=== PATIENT | male | born 1985 | race Caucasian/White ===

== ENCOUNTER → 2017-04-24 | Outpatient (CLI) | payer MEDICAID | LOC: M OUTALCOH 12:50 | PROVIDERS: ATTEND Psychiatry & Neurology Psychiatry | DX: Z13.9 Encounter for screening, unspecified (principal); F11.20 Opioid dependence, uncomplicated ==

== ENCOUNTER 2017-05-08 15:21 | Outpatient (RCR) | payer MEDICAID | END 2017-05-27 | LOC: M OUTALCOH 15:21 | PROVIDERS: ATTEND Psychiatry & Neurology Psychiatry | DX: F11.20 Opioid dependence, uncomplicated (principal) ==